=== PATIENT | male | born 1980 | race African-American/Black ===

== ENCOUNTER 2018-12-18 19:35 | Emergency (ER) | payer SELFPAY | END 2018-12-18 19:55 | disposition home or self-care (01) | LOC: NAV ERS 19:35 | DX: M25.572 Pain in left ankle and joints of left foot (principal); I10 Essential (primary) hypertension; F17.210 Nicotine dependence, cigarettes, uncomplicated; Z79.899 Other long term (current) drug therapy | CPT/HCPCS: 99281 ==

== ENCOUNTER 2019-09-22 21:03 | Emergency (ER) | payer BC, SELFPAY ==
[2019-09-22] MEDS ORDERED: AMOXicillin 250 MG CAP ONE (21:26)
== END 2019-09-22 21:28 | disposition home or self-care (01) ==
LOC: NAV ERS 21:03
DX: H66.91 Otitis media, unspecified, right ear (principal); I10 Essential (primary) hypertension; F17.210 Nicotine dependence, cigarettes, uncomplicated; Z79.899 Other long term (current) drug therapy
CPT/HCPCS: 99282

== ENCOUNTER 2020-01-28 18:45 | Emergency (ER) | payer SELFPAY ==
--- NOTE | 2020-01-28 19:38 | RAD ---
Exam: XR Foot Rt 3 View STANDARD HISTORY: Right heel pain for 3 weeks. COMPARISON: None FINDINGS: No acute fracture, dislocation, or other acute osseous abnormality is identified. IMPRESSION: No acute osseous abnormality is identified.
[2020-01-28] MEDS ORDERED: Naproxen 500 MG TAB ONE (19:47)
== END 2020-01-28 19:51 | disposition home or self-care (01) ==
LOC: NAV ERS 18:45
DX: M72.2 Plantar fascial fibromatosis (principal); I10 Essential (primary) hypertension; F17.210 Nicotine dependence, cigarettes, uncomplicated; Z79.899 Other long term (current) drug therapy

== ENCOUNTER 2021-05-16 02:31 | Emergency (ER) | payer SELFPAY ==
[2021-05-16] MEDS ORDERED: Fluorescein Opthalmic Strip ONE (02:40)
[2021-05-16] MEDS ORDERED: Proparacaine 0.5% Opth 15 ML BOT ONE (02:40)
== END 2021-05-16 03:09 | disposition home or self-care (01) ==
LOC: NAV ERS 02:31
DX: Z03.89 Encounter for observation for other suspected diseases and conditions ruled out (principal); I10 Essential (primary) hypertension; F17.210 Nicotine dependence, cigarettes, uncomplicated
CPT/HCPCS: 99283

== ENCOUNTER 2023-11-03 11:56 | Emergency (ER) | payer SELFPAY ==
[2023-11-03] MEDS ORDERED: cloNIDine 0.2 MG TAB ONE (12:22)
[2023-11-03] MEDS ORDERED: Ibuprofen 800 MG TAB ONE (13:06)
[2023-11-03] MEDS ORDERED: Amlodipine 5 MG TAB ONE (13:38)
== END 2023-11-03 14:15 | disposition home or self-care (01) ==
LOC: NAV ERS 11:56
DX: M79.604 Pain in right leg (principal); I10 Essential (primary) hypertension; F17.210 Nicotine dependence, cigarettes, uncomplicated
CPT/HCPCS: 85379; 99283